=== PATIENT | female | born 1990 | race African-American/Black ===

== ENCOUNTER 2024-07-28 15:56 | Emergency (ER) | payer OTHER ==
[2024-07-28] MEDS ORDERED: Ondansetron ODT 4 MG TAB ONE (17:39)
[2024-07-28] MEDS ORDERED: Ketorolac Tromethamine 30 MG (1 mL) VIAL ONE (18:06)
== END 2024-07-28 18:25 | disposition home or self-care (01) ==
LOC: ERS 15:56
DX: S83.412A Sprain of medial collateral ligament of left knee, initial encounter (principal); I10 Essential (primary) hypertension; Z55.6 Problems related to health literacy; W19.XXXA Unspecified fall, initial encounter
CPT/HCPCS: 96372; 99283; J1885; Q0162

== ENCOUNTER 2024-09-08 10:40 | Emergency (ER) | payer OTHER, SELFPAY ==
[2024-09-08 12:09] LABS: Bacteria/HPF Rare-Few HPF (None Seen); Bilirubin Negative (Negative); Blood, Urine Negative (Negative); CAUTI Indications for Culture Pelvic or flank pain; Clarity Clear (Clear); Glucose, Urine (Dipstick) Normal (Negative); Ketone, Urine Trace mg/dL (Negative); Leukocyte 25 Leu/uL (Negative); Nitrite Negative (Negative); Protein, Urine (Dipstick) Negative (Neg-Trace); RBC/HPF 0-3 HPF (0-3); Specific Gravity, Urine 1.011 (1.002-1.036); Squamous Epithelial 0-3 HPF (0-3); Urobilinogen Normal mg/dL (Less than 2); WBC/HPF 0-3 HPF (0-3); pH, Urine 5.5 (5.0-9.0)
[2024-09-08 12:10] LABS: Urine Culture Reflex No No
[2024-09-08] MEDS ORDERED: Acetaminophen 500 MG TAB ONE (12:12)
[2024-09-08 14:05] LABS: Pregnancy Test - Urine (BHCG) Negative (Negative); Pregu Control Background? CLEAR/WHITE (CLR/WHITE); Pregu Control Bar Appear? YES (CONTROL BAR); Specific Gravity 1.011 (1.002-1.036)
[2024-09-08] MEDS ORDERED: cefTRIAXone (ROCEPHIN) 500 MG VIAL ONE (14:05)
[2024-09-08] MEDS ORDERED: Lidocaine 1% PF 5 ML VIAL ONE (14:06)
[2024-09-08] MEDS ORDERED: Doxycycline 100 MG CAP ONE (14:35)
[2024-09-09 12:16] LABS: Chlamydia by PCR, Vaginal Swab Not Detected (NotDetected); GC by PCR, Vaginal Swab Not Detected (NotDetected)
== END 2024-09-08 14:35 | disposition home or self-care (01) ==
LOC: ERS 10:40
DX: N89.8 Other specified noninflammatory disorders of vagina (principal); I10 Essential (primary) hypertension
CPT/HCPCS: 81001; 81025; 87480; 87491; 87510; 87591; 87660; 96372; 99283; J0696

== ENCOUNTER 2025-03-14 11:14 | Emergency (ER) | payer OTHER ==
[2025-03-14 13:38] LABS: Pregnancy Test - Urine (BHCG) Negative (Negative); Pregu Control Background? CLEAR/WHITE (CLR/WHITE); Pregu Control Bar Appear? YES (CONTROL BAR)
[2025-03-14 13:39] LABS: Bacteria/HPF None Seen HPF (None Seen); CAUTI Indications for Culture Pelvic or flank pain; Glucose, Urine (Dipstick) Normal (Negative); Leukocyte Negative Leu/uL (Negative); Protein, Urine (Dipstick) Negative (Neg-Trace); RBC/HPF 0-3 HPF (0-3); Specific Gravity, Urine 1.026 (1.002-1.036); WBC/HPF 0-3 HPF (0-3)
[2025-03-14 13:41] LABS: Urine Culture Reflex No No
[2025-03-15 14:31] LABS: Chlamydia by PCR, Vaginal Swab Not Detected (NotDetected); GC by PCR, Vaginal Swab Not Detected (NotDetected)
== END 2025-03-14 14:51 | disposition home or self-care (01) ==
LOC: ERS 11:14
DX: N76.0 Acute vaginitis (principal)
CPT/HCPCS: 81001; 81025; 87426; 87480; 87491; 87510; 87591; 87660; 99283

== ENCOUNTER 2025-06-19 14:53 | Outpatient (CLI) | payer OTHER | END 2025-06-19 14:54 | disposition home or self-care (01) | LOC: ULT 14:53 | PROVIDERS: ATTEND Nurse Practitioner Family | DX: N92.0 Excessive and frequent menstruation with regular cycle (principal); N85.8 Other specified noninflammatory disorders of uterus | CPT/HCPCS: 76856 ==